=== PATIENT | male | born 1995 | race Caucasian/White ===

== ENCOUNTER 2018-07-15 15:47 | Emergency (ER) | payer MEDICAID ==
[~2018-07-15 15:47] MED LIST: OLAN10TA20 PO
== END 2018-07-15 16:50 | disposition left against medical advice (07) ==
LOC: EMS 15:48
DX: Z76.0 Encounter for issue of repeat prescription (principal); Z53.21 Procedure and treatment not carried out due to patient leaving prior to being seen by health care provider

== ENCOUNTER 2018-08-12 08:48 | Emergency (ER) | payer MEDICAID ==
[~2018-08-12] VITALS: Ht 177.8 cm; Wt 81.8 kg
[2018-08-12] MEDS ORDERED: QUET200T PO (08:59)
[2018-08-12] MEDS ORDERED: OLAN10TA3 PO (08:59)
[2018-08-12 09:19] VITALS: BP 117/77
== END 2018-08-12 09:31 | disposition home or self-care (01) ==
LOC: EMS 08:50
DX: F20.9 Schizophrenia, unspecified (principal); F31.9 Bipolar disorder, unspecified; F17.210 Nicotine dependence, cigarettes, uncomplicated; Z88.2 Allergy status to sulfonamides
CPT/HCPCS: 99406

== ENCOUNTER 2018-11-06 14:54 | Inpatient (IN) | payer MEDICAID ==
[~2018-11-06] VITALS: Ht 175.3 cm; Wt 77.7 kg
[~2018-11-06 14:54] MED LIST changes: -OLAN10TA20 PO; +QUET200T PO; +SERT50TA12 PO
[2018-11-06] MEDS ORDERED: QUET100T PO (15:44)
[2018-11-06 16:36] LABS: BASOPHILS % (AUTO) 0.5 % (0.0-2.0); EOSINOPHILS % (AUTO) 1.8 % (1.0-6.0); HEMATOCRIT 41.8 % (41-53); HEMOGLOBIN 14.3 g/dL (13.5-17.5); LYMPHOCYTES # (AUTO) 1.7 K/uL (1.0-4.8); LYMPHOCYTES % (AUTO) 31.1 % (22.0-44.0); MEAN CORPUSCULAR HEMOGLOBIN 29.7 pg (26.0-34.0); MEAN CORPUSCULAR HGB CONC 34.3 G/dL (31.0-37.0); MEAN CORPUSCULAR VOLUME 87 fL (80-100); MONOCYTES # (AUTO) 0.4 K/uL (0.1-1.0); MONOCYTES % (AUTO) 6.8 % (2.0-9.0); NEUTROPHILS # (AUTO) 3.3 K/uL (1.8-7.7); NEUTROPHILS % (AUTO) 59.8 % (40.0-70.0); PLATELET COUNT (AUTO) 278 K/uL (150-450); RED BLOOD CELL COUNT(AUTO) 4.82 MIL/uL (4.50-5.90); RED CELL DISTRIBUTION WIDTH 13.6 % (11.5-14.5)
[2018-11-06 16:43] LABS: ANION GAP 5 mmol/L (8-16); CALCIUM, TOTAL 9.2 mg/dL (8.8-10.5); CARBON DIOXIDE 28 mmol/L (22-29); CHLORIDE 108 mmol/L (98-107); GLOMERULAR FILTR. RATE CALC > 60 mL/min (>60); GLUCOSE,RANDOM 85 mg/dL (70-110); POTASSIUM 4.8 mmol/L (3.5-5.1); SODIUM SERUM 141 mmol/L (136-145); UREA NITROGEN, BLOOD 12 mg/dL (7-18)
[2018-11-06 16:51] LABS: ALANINE AMINOTRANSFERASE 20 U/L (12-78); ALBUMIN 3.8 g/dL (3.4-5.0); ALKALINE PHOSPHATASE 84 U/L (46-116); ASPARTATE AMINOTRANSFERASE 17 U/L (15-37); BILIRUBIN,TOTAL 0.2 mg/dL (0.1-1.0); TOTAL PROTEIN, SERUM 6.8 g/dL (6.4-8.2)
[2018-11-06] MEDS ORDERED: QUEtiapine FUMARATE 100 MG TABLET PO ONE (17:15)
[2018-11-06 17:25] LABS: AMPHET/METH SCREEN,URINE NEGATIVE (NEGATIVE); BARBITURATE SCREEN, URINE NEGATIVE (NEGATIVE); BENZODIAZEPINES SCREEN,URINE NEGATIVE (NEGATIVE); CANNABINOID SCREEN,URINE NEGATIVE (NEGATIVE); COCAINE SCREEN,URINE NEGATIVE (NEGATIVE); METHADONE SCREEN, URINE NEGATIVE (NEGATIVE); OPIATE SCREEN,URINE NEGATIVE (NEGATIVE)
[2018-11-06 17:26] LABS: PHENCYCLIDINE SCREEN,URINE NEGATIVE (NEGATIVE)
[2018-11-06] MEDS ORDERED: QUEtiapine FUMARATE 100 MG TABLET PO PRN (17:30)
[2018-11-06 21:33] VITALS: BP 124/83
[2018-11-06] MEDS ORDERED: ONDANSETRON HCL 4 MG TABLET PO PRN (21:45)
[2018-11-06] MEDS ORDERED: IBUPROFEN 400 MG TABLET PO PRN (21:45)
[2018-11-06] MEDS ORDERED: MAGNESIUM HYDROXIDE SUSPENSION 30 ML UDCUP PO PRN (21:45)
[2018-11-06] MEDS ORDERED: GuaiFENesin/D-METHORPHAN [SUGAR-FREE] 200-20MG/10 ML SYRUP UDCUP PO PRN (21:45)
[2018-11-06] MEDS ORDERED: CloNIDine HCL 0.1 MG TABLET PO PRN (21:45)
[2018-11-06] MEDS ORDERED: ACETAMINOPHEN 325 MG TABLET PO PRN (21:45)
[2018-11-06] MEDS ORDERED: PETROLATUM,WHITE 71 GM JELLY TP PRN (21:45)
[2018-11-06] MEDS ORDERED: DOCUSATE SODIUM 100 MG CAPSULE PO PRN (21:45)
[2018-11-06] MEDS ORDERED: NICOTINE 14 MG/24 HOUR PATCH TD PRN (21:45)
[2018-11-06] MEDS ORDERED: LOPERAMIDE HCL 2 MG CAPSULE PO PRN (21:45)
[2018-11-06] MEDS ORDERED: ALBUTEROL SULFATE HFA 90 MCG/PUFF 8 GM INHALER IH PRN (21:45)
[2018-11-06] MEDS ORDERED: MAG HYDROX/AL HYDROX/SIMETH ES 30 ML SUSPENSION UDCUP PO PRN (21:45)
[2018-11-07 03:47] VITALS: BP 111/60
[2018-11-07] MEDS: QUEtiapine FUMARATE 200 MG TABLET PO SCH ×2 (11:19→20:18)
[2018-11-07 16:48] VITALS: BP 105/55
[2018-11-08 05:21] VITALS: BP 108/62
[2018-11-08 08:03] VITALS: BP 115/63
[2018-11-08] MEDS: QUEtiapine FUMARATE 200 MG TABLET PO SCH ×2 (08:57→20:25)
[2018-11-08 17:45] VITALS: BP 117/60
[2018-11-09 06:07] VITALS: BP 112/68
[2018-11-09] MEDS: QUEtiapine FUMARATE 200 MG TABLET PO SCH (09:44)
[2018-11-09] MEDS ORDERED: QUEtiapine FUMARATE 100 MG TABLET PO ONE (10:15)
[2018-11-09 16:46] VITALS: BP 113/64
[2018-11-09] MEDS: QUEtiapine FUMARATE 300 MG TABLET PO SCH (20:10)
[2018-11-10 01:10] VITALS: BP 110/60
[2018-11-10] MEDS: QUEtiapine FUMARATE 300 MG TABLET PO SCH ×2 (08:24→20:19)
[2018-11-10 08:27] VITALS: BP 100/63
[2018-11-10 16:11] VITALS: BP 105/62
[2018-11-11 05:35] VITALS: BP 104/61
[2018-11-11] MEDS: QUEtiapine FUMARATE 300 MG TABLET PO SCH (08:19)
[2018-11-11 09:14] VITALS: BP 117/65
[2018-11-11 16:15] VITALS: BP 117/77
[2018-11-11] MEDS: QUEtiapine FUMARATE 200 MG TABLET PO SCH (20:14)
[2018-11-12 05:32] VITALS: BP 112/70
[2018-11-12 08:17] VITALS: BP 120/76
[2018-11-12] MEDS: QUEtiapine FUMARATE 100 MG TABLET PO SCH (09:49)
[2018-11-12 16:13] VITALS: BP 117/69
[2018-11-12] MEDS: ZOLPIDEM TARTRATE 10 MG TABLET PO PRN (20:22)
[2018-11-12] MEDS: QUEtiapine FUMARATE 200 MG TABLET PO SCH (20:22)
[2018-11-13 00:53] VITALS: BP 113/63
[2018-11-13 08:29] VITALS: BP 123/68
[2018-11-13] MEDS: QUEtiapine FUMARATE 100 MG TABLET PO SCH (10:05)
[2018-11-13 16:16] VITALS: BP 110/73
[2018-11-13] MEDS: ZOLPIDEM TARTRATE 10 MG TABLET PO PRN (20:33)
[2018-11-13] MEDS: QUEtiapine FUMARATE 200 MG TABLET PO SCH (20:33)
[2018-11-14 05:27] VITALS: BP 119/75
[2018-11-14] MEDS: QUEtiapine FUMARATE 100 MG TABLET PO SCH (08:26)
[2018-11-14 08:35] VITALS: BP 110/67
[2018-11-14 16:08] VITALS: BP 108/62
[2018-11-14] MEDS: OLANZapine 10 MG TABLET PO SCH (20:06)
[2018-11-15 06:26] VITALS: BP 112/65
[2018-11-15] MEDS: OLANZapine 5 MG TABLET PO SCH (08:48)
[2018-11-15 16:28] VITALS: BP 106/67
[2018-11-15] MEDS: ZOLPIDEM TARTRATE 10 MG TABLET PO PRN (20:32)
[2018-11-15] MEDS: OLANZapine 10 MG TABLET PO SCH (20:32)
[2018-11-15] MEDS: LORazepam 2 MG TABLET PO PRN (22:34)
[2018-11-16 07:23] VITALS: BP 110/68
[2018-11-16 08:44] VITALS: BP 104/65
[2018-11-16] MEDS: OLANZapine 5 MG TABLET PO SCH (09:10)
[2018-11-16] MEDS: SERTRALINE HCL 50 MG TABLET PO SCH (10:45)
[2018-11-16 16:43] VITALS: BP 110/67
[2018-11-16] MEDS: LORazepam 2 MG TABLET PO PRN (18:33)
[2018-11-16] MEDS: ZOLPIDEM TARTRATE 10 MG TABLET PO PRN (20:46)
[2018-11-16] MEDS: OLANZapine 7.5 MG TABLET PO SCH (20:46)
[2018-11-17 07:05] VITALS: BP 107/64
[2018-11-17] MEDS ORDERED: SERT50TA12 PO (08:15)
[2018-11-17] MEDS ORDERED: OLAN7.5T2 PO (08:15)
[2018-11-17] MEDS ORDERED: OLAN5TAB2 PO (08:15)
[2018-11-17] MEDS: OLANZapine 5 MG TABLET PO SCH (08:34)
[2018-11-17] MEDS: SERTRALINE HCL 50 MG TABLET PO SCH (08:34)
[2018-11-17 08:40] VITALS: BP 114/71
[2018-11-17 16:11] VITALS: BP 120/70
[2018-11-17] MEDS: OLANZapine 7.5 MG TABLET PO SCH (19:44)
[2018-11-17] MEDS: ZOLPIDEM TARTRATE 10 MG TABLET PO PRN (19:44)
[2018-11-17] MEDS: LORazepam 2 MG TABLET PO PRN (21:47)
[2018-11-18 05:05] VITALS: BP 108/69
[2018-11-18] MEDS: SERTRALINE HCL 50 MG TABLET PO SCH (08:59)
[2018-11-18] MEDS: OLANZapine 5 MG TABLET PO SCH (08:59)
[2018-11-18 09:20] VITALS: BP 101/64
[2018-11-18] MEDS ORDERED: OLAN7.5T9 PO (15:21)
[2018-11-18] MEDS ORDERED: OLAN5TAB27 PO (15:21)
[2018-11-18] MEDS ORDERED: SERT50TA12 PO (15:21)
== END 2018-11-18 16:40 | disposition home or self-care (01) | DRG 750 ==
LOC: EMS 14:54 → UNDOADMIN 18:55 → B2S 18:55 → 2WR 18:55
DX: F25.0 Schizoaffective disorder, bipolar type (principal); R45.851 Suicidal ideations; Z59.0 Homelessness; F11.10 Opioid abuse, uncomplicated; F15.10 Other stimulant abuse, uncomplicated; F17.210 Nicotine dependence, cigarettes, uncomplicated; F41.1 Generalized anxiety disorder; G44.209 Tension-type headache, unspecified, not intractable; F32.9 Major depressive disorder, single episode, unspecified; G47.00 Insomnia, unspecified; K21.9 Gastro-esophageal reflux disease without esophagitis; K59.00 Constipation, unspecified; Z79.899 Other long term (current) drug therapy; Z91.5 Personal history of self-harm; Z28.21 Immunization not carried out because of patient refusal; Z88.2 Allergy status to sulfonamides; Z71.6 Tobacco abuse counseling; Z71.51 Drug abuse counseling and surveillance of drug abuser
CPT/HCPCS: 99406; G0480

== ENCOUNTER 2024-04-12 23:25 | Inpatient (IN) | payer MEDICAID, OTHER ==
[~2024-04-12] VITALS: Ht 175.3 cm; Wt 68.0 kg
[~2024-04-12 23:25] MED LIST changes: +OLAN5TAB52 PO; +OLAN5TAB77 PO; +OLAN7.5T18 PO; +OLAN7.5T22 PO; -QUET200T PO; +SERT-158 PO; +SERT-439 PO; -SERT50TA12 PO
[2024-04-12] MEDS: SODIUM CHLORIDE 0.9% 1,000 ML IV ONE (23:45)
[2024-04-12 23:59] LABS: COVID AG,FIA SOURCE NASAL SWAB
[2024-04-13] VITALS (8 sets, daily range): BP systolic 110–123; BP diastolic 60–77; PULSE 61–98; RESP 17–20; TEMP 97.1–98.4; O2SAT 96–100
[2024-04-13 00:01] LABS: ANION GAP 5 mmol/L (8-16); BASOPHILS % (AUTO) 0.1 % (0.0-2.0); CALCIUM, TOTAL 9.3 mg/dL (8.8-10.5); CARBON DIOXIDE 30 mmol/L (22-29); CHLORIDE 107 mmol/L (98-107); CREATININE 0.94 mg/dL (0.60-1.30); EOSINOPHILS % (AUTO) 0 % (1.0-6.0); GLOMERULAR FILTR. RATE CALC > 60 mL/min (>60); GLUCOSE,RANDOM 87 mg/dL (70-110); HEMATOCRIT 45.7 % (41-53); HEMOGLOBIN 15.2 g/dL (13.5-17.5); LYMPHOCYTES # (AUTO) 0.8 K/uL (1.0-4.8); LYMPHOCYTES % (AUTO) 6.6 % (22.0-44.0); MEAN CORPUSCULAR HEMOGLOBIN 28.9 pg (26.0-34.0); MEAN CORPUSCULAR HGB CONC 33.3 G/dL (31.0-37.0); MEAN CORPUSCULAR VOLUME 87 fL (80-100); MONOCYTES # (AUTO) 0.4 K/uL (0.1-1.0); MONOCYTES % (AUTO) 3.5 % (2.0-9.0); NEUTROPHILS # (AUTO) 10.9 K/uL (1.8-7.7); PLATELET COUNT (AUTO) 371 K/uL (150-450); POTASSIUM 3.8 mmol/L (3.5-5.1); RED BLOOD CELL COUNT(AUTO) 5.26 MIL/uL (4.50-5.90); RED CELL DISTRIBUTION WIDTH 13.2 % (11.5-14.5); SODIUM SERUM 142 mmol/L (136-145); UREA NITROGEN, BLOOD 17 mg/dL (7-18); WHITE BLOOD COUNT (AUTO) 12.2 K/uL (4.5-11.0)
[2024-04-13 00:03] LABS: NEUTROPHILS % (AUTO) 89.8 % (40.0-70.0)
[2024-04-13 00:07] LABS: ACETAMINOPHEN 15 mcg/mL (10-30); ALANINE AMINOTRANSFERASE 33 U/L (12-78); ALBUMIN 3.4 g/dL (3.4-5.0); ALKALINE PHOSPHATASE 65 U/L (46-116); ASPARTATE AMINOTRANSFERASE 23 U/L (15-37); BILIRUBIN,TOTAL 0.2 mg/dL (0.1-1.0); TOTAL PROTEIN, SERUM 7.7 g/dL (6.4-8.2)
[2024-04-13] MEDS: MAGNESIUM SULFATE 2 GM/WATER 50 ML IV ONE (00:28)
[2024-04-13 01:06] LABS: SARS-COV2 (COVID) ANTIGEN,FIA Negative (Negative)
[2024-04-13 01:13] LABS: SALICYLATE 16.3 mg/dL (2.8-20.0)
[2024-04-13] MEDS ORDERED: QUEtiapine FUMARATE 100 MG TABLET PO PRN (01:30)
[2024-04-13 01:33] LABS: ALCOHOL, BLOOD (SERUM) < 3 mg/dL (0-10); LITHIUM 3.73 mmol/L (0.60-1.20)
[2024-04-13] MEDS: SODIUM CHLORIDE 0.9% 1,000 ML IV ONE (02:13)
[2024-04-13 02:18] LABS: AMPHET/METH SCREEN,URINE NEGATIVE (NEGATIVE); BARBITURATE SCREEN, URINE NEGATIVE (NEGATIVE); BENZODIAZEPINES SCREEN,URINE NEGATIVE (NEGATIVE); CANNABINOID SCREEN,URINE NEGATIVE (NEGATIVE); COCAINE SCREEN,URINE NEGATIVE (NEGATIVE); METHADONE SCREEN, URINE NEGATIVE (NEGATIVE); OPIATE SCREEN,URINE NEGATIVE (NEGATIVE); PHENCYCLIDINE SCREEN,URINE NEGATIVE (NEGATIVE)
[2024-04-13 02:26] LABS: ALCOHOL, URINE DRUG SCREEN NEGATIVE (NEGATIVE)
[2024-04-13 02:27] LABS: APPEARANCE,URINE CLEAR (CLEAR); BILIRUBIN,URINE NEGATIVE (NEGATIVE); COLOR,URINE LIGHT YELLOW (YELLOW); GLUCOSE, URINE (UA) NEGATIVE (NEGATIVE); KETONES,URINE NEGATIVE (NEGATIVE); LEUKOCYTE ESTERASE ,URINE TRACE (NEGATIVE); NITRATE,URINE NEGATIVE (NEGATIVE); OCCULT BLOOD,URINE NEGATIVE (NEGATIVE); PH,URINE 6.5 (5.0-8.0); PH,URINE DRUG SCREEN 6.5 (5.0-8.0); PROTEIN,URINE TRACE mg/dL (NEGATIVE); SPECIFIC GRAVITIY, URINE 1.018 (1.003-1.030); UROBILINOGEN,URINE <=1.0 mg/dL (<=1.0)
[2024-04-13 02:41] LABS: BACTERIA,URINE Moderate /HPF (None Seen); RBC,URINE 0-2 /HPF (0-2); SQUAMOUS EPITHELIAL CELL,UR Rare /LPF (None Seen)
[2024-04-13 03:41] LABS: ANION GAP 6 mmol/L (8-16); CALCIUM, TOTAL 8.8 mg/dL (8.8-10.5); CARBON DIOXIDE 28 mmol/L (22-29); CHLORIDE 108 mmol/L (98-107); CREATININE 1.01 mg/dL (0.60-1.30); GLOMERULAR FILTR. RATE CALC > 60 mL/min (>60); GLUCOSE,RANDOM 87 mg/dL (70-110); POTASSIUM 3.5 mmol/L (3.5-5.1); SODIUM SERUM 142 mmol/L (136-145); UREA NITROGEN, BLOOD 13 mg/dL (7-18)
[2024-04-13 03:58] LABS: LITHIUM 3.07 mmol/L (0.60-1.20)
[2024-04-13] MEDS: POTASSIUM CHL 10 MEQ/WATER 50 ML IV SCH (05:39)
[2024-04-13 07:43] LABS: LITHIUM 2.38 mmol/L (0.60-1.20)
[2024-04-13 08:01] LABS: ANION GAP 10 mmol/L (8-16); CALCIUM, TOTAL 9.7 mg/dL (8.8-10.5); CARBON DIOXIDE 26 mmol/L (22-29); CHLORIDE 107 mmol/L (98-107); CREATININE 1.26 mg/dL (0.60-1.30); GLOMERULAR FILTR. RATE CALC > 60 mL/min (>60); GLUCOSE,RANDOM 62 mg/dL (70-110); POTASSIUM 3.4 mmol/L (3.5-5.1); SODIUM SERUM 143 mmol/L (136-145); UREA NITROGEN, BLOOD 14 mg/dL (7-18)
[2024-04-13] MEDS: POTASSIUM CHLORIDE 20 MEQ ER TABLET PO ONE (08:23)
[2024-04-13] MEDS: ONDANSETRON HCL 4 MG/2 ML VIAL IM PRN (11:13)
[2024-04-13] MEDS ORDERED: TUBERCULIN, PURIFIED PROTEIN DERIVATIVE 5 TU/0.1 ML SYRINGE ID ONE (14:45)
[2024-04-13] MEDS ORDERED: OLANZapine 5 MG RAPDIS TABLET PO PRN (14:45)
[2024-04-13] MEDS ORDERED: HydrOXYzine PAMOATE 50 MG CAPSULE PO PRN (14:45)
[2024-04-13] MEDS ORDERED: GuaiFENesin/D-METHORPHAN [SUGAR-FREE] 200-20MG/10 ML SYRUP UDCUP PO PRN (14:45)
[2024-04-13] MEDS ORDERED: PROMETHAZINE HCL 25 MG TABLET PO PRN (14:45)
[2024-04-13] MEDS ORDERED: RisperiDONE 3 MG TABLET PO PRN (14:45)
[2024-04-13] MEDS ORDERED: LOPERAMIDE HCL 2 MG CAPSULE PO PRN (14:45)
[2024-04-13] MEDS: RisperiDONE 3 MG TABLET PO ONE (16:22)
[2024-04-13] MEDS: MELATONIN 5 MG TABLET PO SCH (21:16)
[2024-04-14 08:27] VITALS: RESP 18
[2024-04-14 08:27] LABS: HEMOGLOBIN A1C 5.6 % (3.8-5.6)
[2024-04-14 08:31] LABS: LITHIUM 1.47 mmol/L (0.60-1.20)
[2024-04-14 08:34] LABS: ALANINE AMINOTRANSFERASE 24 U/L (12-78); ALBUMIN 2.8 g/dL (3.4-5.0); ALKALINE PHOSPHATASE 59 U/L (46-116); ANION GAP 4 mmol/L (8-16); ASPARTATE AMINOTRANSFERASE 14 U/L (15-37); BILIRUBIN,TOTAL 0.5 mg/dL (0.1-1.0); CALCIUM, TOTAL 9.3 mg/dL (8.8-10.5); CARBON DIOXIDE 27 mmol/L (22-29); CHLORIDE 106 mmol/L (98-107); CHOL/HDL RATIO 2.9 (4.2-7.3); CHOLESTEROL 86 mg/dL (131-200); CREATININE 1.02 mg/dL (0.60-1.30); FREE T4 (FREE THYROXINE) 1.26 ng/dL (0.76-1.46); GLOMERULAR FILTR. RATE CALC > 60 mL/min (>60); GLUCOSE,RANDOM 88 mg/dL (70-110); HDL CHOLESTEROL 30 mg/dL (40-60); LDL CHOL (CALC.) 41 mg/dL (0-130); PHOSPHORUS 3.4 mg/dL (2.5-4.9); POTASSIUM 3.9 mmol/L (3.5-5.1); SODIUM SERUM 137 mmol/L (136-145); THYROID STIMULATING HORMONE 3.09 uIU/mL (0.36-3.74); TOTAL PROTEIN, SERUM 6.3 g/dL (6.4-8.2); TRIGLYCERIDES 74 mg/dL (15-150); UREA NITROGEN, BLOOD 14 mg/dL (7-18)
[2024-04-14 09:10] VITALS: BP 111/63; PULSE 61; RESP 18; TEMP 97.3; O2SAT 99
[2024-04-14] MEDS: OMEGA-3/DHA/EPA/FISH OIL 1,000 MG CAPSULE PO SCH (10:17)
[2024-04-14] MEDS: NALTREXONE HCL 50 MG TABLET PO SCH (10:17)
[2024-04-14] MEDS: FOLIC ACID 1 MG TABLET PO SCH (10:17)
[2024-04-14] MEDS: MULTIVITAMINS WITH MINERALS, THERAPEUTIC TABLET PO SCH (10:17)
[2024-04-14] MEDS: FLUoxetine HCL 20 MG CAPSULE PO SCH (10:18)
[2024-04-14] MEDS: THIAMINE 100 MG TABLET PO SCH (10:23)
[2024-04-14] MEDS: QUEtiapine FUMARATE 25 MG TABLET PO SCH ×2 (16:41→20:29)
[2024-04-14 20:11] VITALS: BP 113/65; PULSE 66; RESP 20; TEMP 97.7; O2SAT 96
[2024-04-14] MEDS: LITHIUM CARBONATE 300 MG CAPSULE PO SCH (20:30)
[2024-04-14] MEDS: RisperiDONE ER SUSPENSION 250 MG/0.7 ML PRE-FILLED SYRINGE SQ ONE (21:49)
[2024-04-14 22:37] VITALS: BP 109/63; PULSE 56; RESP 20; TEMP 97.5; O2SAT 99
[2024-04-15 08:28] VITALS: BP 100/68; PULSE 72; RESP 18; TEMP 97.4; O2SAT 94
[2024-04-15] MEDS: BuPROPion HCL XL 150 MG ER TABLET PO SCH (09:55)
[2024-04-15 20:10] VITALS: BP_SYST 109; BP_SYST 126; BP_DIAS 60; BP_DIAS 72; PULSE 70; PULSE 74; RESP 16; TEMP 97.3; TEMP 98.9; O2SAT 96; O2SAT 97
[2024-04-15] MEDS: ZOLPIDEM TARTRATE 10 MG TABLET PO PRN (23:39)
[2024-04-16 08:34] VITALS: BP 118/73; PULSE 99; RESP 18; TEMP 97.4; O2SAT 99
[2024-04-16 20:58] VITALS: BP 103/74; PULSE 80; RESP 18; TEMP 96.4; O2SAT 97
[2024-04-17] MEDS: QUEtiapine FUMARATE 25 MG TABLET PO PRN (01:44)
[2024-04-17] MEDS: LORazepam 2 MG TABLET PO PRN (01:44)
[2024-04-17 09:18] VITALS: BP 104/51; PULSE 76; RESP 17; TEMP 97.5; O2SAT 100
[2024-04-17] MEDS: NITROFURANTOIN MONOHYD/M-CRYST 100 MG CAPSULE [MACROBID] PO SCH (11:19)
[2024-04-17 20:43] VITALS: BP 106/80; PULSE 80; RESP 18; TEMP 97.5; O2SAT 100
[2024-04-18 09:40] VITALS: BP 135/79; PULSE 99; RESP 17; TEMP 97.8; O2SAT 100
[2024-04-18] MEDS: MAGNESIUM HYDROXIDE SUSPENSION 30 ML UDCUP PO PRN (10:33)
[2024-04-18] MEDS: MAG HYDROX/ALUMINUM HYD/SIMETH ES 30 ML SUSPENSION UDCUP PO PRN (19:22)
[2024-04-18 20:49] VITALS: BP 128/78; PULSE 90; RESP 14; TEMP 97.8; O2SAT 100
[2024-04-19] MEDS ORDERED: POLYETHYLENE GLYCOL 3350 17 GM PACKET PO PRN (06:30)
[2024-04-19 08:26] LABS: BASOPHILS % (AUTO) 0.7 % (0.0-2.0); EOSINOPHILS % (AUTO) 2.6 % (1.0-6.0); HEMATOCRIT 38.9 % (41-53); HEMOGLOBIN 12.9 g/dL (13.5-17.5); LYMPHOCYTES % (AUTO) 33.1 % (22.0-44.0); MEAN CORPUSCULAR HGB CONC 33.1 G/dL (31.0-37.0); MEAN CORPUSCULAR VOLUME 88 fL (80-100); MONOCYTES # (AUTO) 0.4 K/uL (0.1-1.0); MONOCYTES % (AUTO) 7.1 % (2.0-9.0); NEUTROPHILS # (AUTO) 3.4 K/uL (1.8-7.7); NEUTROPHILS % (AUTO) 56.5 % (40.0-70.0); PLATELET COUNT (AUTO) 387 K/uL (150-450); RED BLOOD CELL COUNT(AUTO) 4.45 MIL/uL (4.50-5.90); RED CELL DISTRIBUTION WIDTH 13.7 % (11.5-14.5); WHITE BLOOD COUNT (AUTO) 6.1 K/uL (4.5-11.0)
[2024-04-19 08:27] LABS: RBC MORPHOLOGY COMMENT NORMAL RBC MORPH
[2024-04-19 08:29] VITALS: BP 102/61; PULSE 106; RESP 18; TEMP 97.9; O2SAT 100
[2024-04-19 21:05] VITALS: BP 117/74; PULSE 98; RESP 18; TEMP 97.8; O2SAT 99
[2024-04-19] MEDS: ACETAMINOPHEN 325 MG TABLET PO PRN (21:42)
[2024-04-20] MEDS: LITHIUM CARBONATE 300 MG TABLET PO SCH (06:33)
[2024-04-20 08:07] VITALS: BP 126/76; PULSE 92; RESP 18; TEMP 97.7; O2SAT 100
[2024-04-20] MEDS: POLYETHYLENE GLYCOL 3350 17 GM PACKET PO PRN (08:39)
[2024-04-20] MEDS: BuPROPion HCL XL 150 MG ER TABLET PO SCH (09:10)
[2024-04-20 11:17] VITALS: BP 122/74; PULSE 98; RESP 18; TEMP 97.6; O2SAT 98
[2024-04-20 12:17] VITALS: BP 124/76; PULSE 97; RESP 16; TEMP 97.8; O2SAT 98
[2024-04-20] MEDS ORDERED: GABAPENTIN 300 MG CAPSULE PO PRN (16:15)
[2024-04-20] MEDS: GABAPENTIN 300 MG CAPSULE PO SCH (17:13)
[2024-04-20 20:00] VITALS: BP 115/50; PULSE 91; RESP 17; TEMP 97.7; O2SAT 96
[2024-04-21] MEDS: QUEtiapine FUMARATE 25 MG TABLET PO PRN (00:58)
[2024-04-21 01:00] VITALS: BP 141/74; PULSE 91; RESP 16; TEMP 98.6; O2SAT 100
[2024-04-21 08:07] VITALS: BP 123/78; PULSE 97; RESP 18; TEMP 97.7; O2SAT 98
[2024-04-21 08:50] VITALS: RESP 18; O2SAT 98
[2024-04-21] MEDS: BuPROPion HCL XL 150 MG ER TABLET PO SCH (08:56)
[2024-04-21 09:50] VITALS: RESP 18; O2SAT 98
[2024-04-21] MEDS: QUEtiapine FUMARATE 25 MG TABLET PO SCH (20:04)
[2024-04-21 20:35] VITALS: BP 121/66; PULSE 80; RESP 18; TEMP 97.6; O2SAT 99
[2024-04-22 08:05] VITALS: BP 122/72; PULSE 92; RESP 18; TEMP 97.2; O2SAT 91
[2024-04-22] MEDS: ATOMOXETINE HCL 10 MG CAPSULE PO SCH (08:21)
[2024-04-22] MEDS ORDERED: BUPR-514 PO (13:39)
[2024-04-22] MEDS ORDERED: GABA-1181 PO (13:39)
[2024-04-22] MEDS ORDERED: ATOM10CA4 PO (13:39)
[2024-04-22] MEDS ORDERED: MELA5TAB40 PO (13:39)
[2024-04-22] MEDS ORDERED: LITH300T PO (13:39)
[2024-04-22] MEDS ORDERED: OMEG-135 PO (13:39)
[2024-04-22] MEDS ORDERED: NALT50TA33 PO (13:39)
[2024-04-22] MEDS ORDERED: RISP250S SQ (13:40)
[2024-04-22] MEDS ORDERED: QUET25TA36 PO (13:40)
[2024-04-22 20:08] VITALS: BP 110/78; PULSE 95; RESP 18; TEMP 98.1; O2SAT 97
[2024-04-22] MEDS: QUEtiapine FUMARATE 25 MG TABLET PO SCH (21:00)
[2024-04-23] MEDS: ATOMOXETINE HCL 18 MG CAPSULE PO SCH (08:26)
[2024-04-23 08:40] VITALS: BP 115/63; PULSE 113; RESP 16; TEMP 97.6; O2SAT 100
[2024-06-13] MEDS ORDERED: RisperiDONE ER SUSPENSION 250 MG/0.7 ML PRE-FILLED SYRINGE SQ SCH (09:00)
== END 2024-04-23 10:41 | disposition home or self-care (01) | DRG 750 ==
LOC: EMS 23:25 → B2S 04-13 08:16
PROVIDERS: ADMIT Psychiatry & Neurology Psychiatry; ATTEND Psychiatry & Neurology Psychiatry
PROC: GZHZZZZ Group Psychotherapy (ICD-10-PCS; principal; 2024-04-13)
PROC: GZ51ZZZ Individual Psychotherapy, Behavioral (ICD-10-PCS; 2024-04-13)
PROC: GZ58ZZZ Individual Psychotherapy, Cognitive-Behavioral (ICD-10-PCS; 2024-04-13)
PROC: GZ56ZZZ Individual Psychotherapy, Supportive (ICD-10-PCS; 2024-04-15)
DX: F25.9 Schizoaffective disorder, unspecified (principal); R45.851 Suicidal ideations; F17.210 Nicotine dependence, cigarettes, uncomplicated; F31.9 Bipolar disorder, unspecified; F41.9 Anxiety disorder, unspecified; F90.9 Attention-deficit hyperactivity disorder, unspecified type; Z20.822 Contact with and (suspected) exposure to COVID-19; J44.9 Chronic obstructive pulmonary disease, unspecified; E87.6 Hypokalemia; D72.829 Elevated white blood cell count, unspecified; K29.70 Gastritis, unspecified, without bleeding; F19.10 Other psychoactive substance abuse, uncomplicated; E16.2 Hypoglycemia, unspecified; G89.29 Other chronic pain; Z88.2 Allergy status to sulfonamides
CPT/HCPCS: 76999; 80048; 80053; 80061; 80069; 80076; 80178; 80307; 81001; 83036; 83735; 84439; 84443; 85025; 86592; 87086; 87186; 93005; 96360; 99291; G0480; G0481; J2405; J3475; J3480; 36415-L1; 36415-TC

== ENCOUNTER 2024-07-06 13:44 | Emergency (ER) | payer MEDICAID, OTHER ==
[~2024-07-06] VITALS: Ht 177.8 cm; Wt 75.0 kg
[~2024-07-06 13:44] MED LIST changes: +ATOM10CA4 PO; +BUPR-514 PO; +GABA-1181 PO; +LITH300T PO; +MELA5TAB40 PO; +NALT50TA33 PO; -OLAN5TAB52 PO; -OLAN5TAB77 PO; -OLAN7.5T18 PO; -OLAN7.5T22 PO; +OMEG-135 PO; +QUET25TA36 PO; +RISP250S SQ; -SERT-158 PO; -SERT-439 PO
[2024-07-06 13:51] VITALS: BP 113/59; PULSE 73; RESP 18; TEMP 98.6; O2SAT 100
[2024-07-06 15:18] LABS: ANION GAP 10 mmol/L (8-16); CALCIUM, TOTAL 8.5 mg/dL (8.8-10.5); CARBON DIOXIDE 24 mmol/L (22-29); CHLORIDE 103 mmol/L (98-107); CREATININE 0.83 mg/dL (0.60-1.30); GLOMERULAR FILTR. RATE CALC > 60 mL/min (>60); GLUCOSE,RANDOM 84 mg/dL (70-110); POTASSIUM 4.1 mmol/L (3.5-5.1); SODIUM SERUM 137 mmol/L (136-145); UREA NITROGEN, BLOOD 25 mg/dL (7-18)
[2024-07-06 15:24] LABS: ALCOHOL, BLOOD (SERUM) < 3 mg/dL (0-10)
[2024-07-06] MEDS: QUEtiapine FUMARATE 100 MG TABLET PO ONE (15:54)
== END 2024-07-06 16:24 | disposition home or self-care (01) ==
LOC: EMS 13:44
DX: F25.0 Schizoaffective disorder, bipolar type (principal); F15.90 Other stimulant use, unspecified, uncomplicated; F12.90 Cannabis use, unspecified, uncomplicated; Z88.2 Allergy status to sulfonamides; Z98.890 Other specified postprocedural states
CPT/HCPCS: 99284; 80048; 36415; G0480

== ENCOUNTER 2024-07-08 20:02 | Inpatient (IN) | payer MEDICAID ==
[~2024-07-08] VITALS: Ht 177.8 cm; Wt 78.0 kg
[2024-07-08] MEDS ORDERED: MAG HYDROX/ALUMINUM HYD/SIMETH ES 30 ML SUSPENSION UDCUP PO PRN (20:30)
[2024-07-08] MEDS ORDERED: ACETAMINOPHEN 325 MG TABLET PO PRN (20:30)
[2024-07-08] MEDS ORDERED: LOPERAMIDE HCL 2 MG CAPSULE PO PRN (20:30)
[2024-07-08] MEDS ORDERED: MAGNESIUM HYDROXIDE SUSPENSION 30 ML UDCUP PO PRN (20:30)
[2024-07-08 21:35] LABS: GLUCOMETER DEV NAME(LOC) POC.BV; POC SARS-COV2 AG, FIA NEGATIVE (NEGATIVE)
[2024-07-08] MEDS ORDERED: INFLUENZA VIRUS VACCINE TVS (6MO+) 2024-25/PF 45 MCG/0.5 ML SYRINGE IM. ONE (23:00)
[2024-07-09 00:11] VITALS: BP 127/78; PULSE 86; RESP 18; TEMP 98.2
[2024-07-09 08:34] VITALS: BP 101/56; PULSE 61; RESP 16; TEMP 97.5; O2SAT 99
[2024-07-09] MEDS: ATOMOXETINE HCL 18 MG CAPSULE PO SCH (10:30)
[2024-07-09] MEDS: BuPROPion HCL XL 150 MG ER TABLET PO SCH (10:54)
[2024-07-09] MEDS: NALTREXONE HCL 50 MG TABLET PO SCH (10:54)
[2024-07-09] MEDS: LITHIUM CARBONATE 300 MG TABLET PO SCH (16:54)
[2024-07-09 20:18] VITALS: BP 128/77; PULSE 86; RESP 18; TEMP 97.6
[2024-07-09] MEDS: QUEtiapine FUMARATE 100 MG TABLET PO SCH (20:29)
[2024-07-10 08:23] VITALS: BP 109/75; PULSE 79; RESP 16; TEMP 97.4; O2SAT 100
[2024-07-10] MEDS: QUEtiapine FUMARATE 25 MG TABLET PO SCH (20:03)
[2024-07-10 20:39] VITALS: BP 121/72; PULSE 64; RESP 16; TEMP 97.3; O2SAT 100
[2024-07-10] MEDS: ZOLPIDEM TARTRATE 10 MG TABLET PO PRN (21:39)
[2024-07-11] MEDS: HALOPERIDOL 5 MG TABLET PO PRN (11:05)
[2024-07-11] MEDS: LORazepam 2 MG TABLET PO PRN (11:05)
[2024-07-11 15:20] VITALS: BP 116/78; PULSE 70; RESP 15; TEMP 97.9; O2SAT 99
[2024-07-11 20:35] VITALS: RESP 18
[2024-07-12 09:17] VITALS: RESP 18
[2024-07-12 20:24] VITALS: BP 114/67; PULSE 89; RESP 18; TEMP 97.5; O2SAT 99
[2024-07-13 10:30] VITALS: BP 103/60; PULSE 75; RESP 18; TEMP 97.7; O2SAT 97
[2024-07-14 08:48] VITALS: RESP 18
[2024-07-14] MEDS ORDERED: ATOM18CA7 PO ×2 (11:20→11:23)
[2024-07-14] MEDS ORDERED: BUPR-514 PO ×2 (11:20→11:23)
[2024-07-14] MEDS ORDERED: LITH300T PO ×2 (11:20→11:23)
[2024-07-14] MEDS ORDERED: QUET25TA36 PO ×2 (11:20→11:23)
[2024-07-14] MEDS ORDERED: NALT50TA33 PO ×2 (11:20→11:23)
== END 2024-07-14 15:27 | disposition home or self-care (01) | DRG 750 ==
LOC: B3A 20:30
PROVIDERS: ADMIT Psychiatry & Neurology Psychiatry; ATTEND Psychiatry & Neurology Psychiatry
PROC: GZ56ZZZ Individual Psychotherapy, Supportive (ICD-10-PCS; principal; 2024-07-09)
PROC: GZ52ZZZ Individual Psychotherapy, Cognitive (ICD-10-PCS; 2024-07-09)
PROC: GZHZZZZ Group Psychotherapy (ICD-10-PCS; 2024-07-09)
DX: F25.0 Schizoaffective disorder, bipolar type (principal); R45.851 Suicidal ideations; F98.8 Other specified behavioral and emotional disorders with onset usually occurring in childhood and adolescence; Z20.822 Contact with and (suspected) exposure to COVID-19; F10.90 Alcohol use, unspecified, uncomplicated; Y90.9 Presence of alcohol in blood, level not specified; F17.200 Nicotine dependence, unspecified, uncomplicated; M54.9 Dorsalgia, unspecified; F90.0 Attention-deficit hyperactivity disorder, predominantly inattentive type; Z88.2 Allergy status to sulfonamides; Z79.899 Other long term (current) drug therapy; I10 Essential (primary) hypertension; M54.30 Sciatica, unspecified side
CPT/HCPCS: Z7610

== ENCOUNTER 2024-10-07 13:05 | Emergency (ER) | payer MEDICAID, OTHER ==
[~2024-10-07] VITALS: Ht 167.6 cm; Wt 68.2 kg
[~2024-10-07 13:05] MED LIST changes: -ATOM10CA4 PO; +ATOM18CA7 PO; -GABA-1181 PO; -MELA5TAB40 PO; -OMEG-135 PO; -RISP250S SQ
[2024-10-07 13:14] VITALS: BP 112/76; PULSE 63; RESP 16; TEMP 97.7; O2SAT 98
[2024-10-07] MEDS: CEPHALEXIN MONOHYDRATE 500 MG CAPSULE PO ONE (16:49)
[2024-10-07] MEDS: DOXYCYCLINE HYCLATE 100 MG TABLET PO ONE (16:50)
[2024-10-07] MEDS: BACITRACIN 0.9 GM PACKET OINTMENT TP ONE (16:50)
[2024-10-07] MEDS: ACETAMINOPHEN 500 MG TABLET PO ONE (16:50)
[2024-10-07] MEDS ORDERED: CEPH-558 PO (17:08)
[2024-10-07] MEDS ORDERED: DOXY-354 PO (17:08)
[2024-10-07] MEDS: PERTUSS(ACELL),DIPH,TET/PF 0.5 ML SYRINGE [ADULT] IM. ONE (17:38)
== END 2024-10-07 17:48 | disposition home or self-care (01) ==
LOC: EMS 13:05
DX: L03.114 Cellulitis of left upper limb (principal); F20.9 Schizophrenia, unspecified; F31.9 Bipolar disorder, unspecified; F17.210 Nicotine dependence, cigarettes, uncomplicated; F15.90 Other stimulant use, unspecified, uncomplicated; Z88.2 Allergy status to sulfonamides; Z79.899 Other long term (current) drug therapy
CPT/HCPCS: 10060; 90471; 90715; 99284